=== PATIENT | male | born 2000 | race Two or more races ===

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

== ENCOUNTER 2019-08-22 19:07 | Emergency (ER) | payer OTHER ==
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
== END 2019-08-22 19:37 | disposition home or self-care (01) ==
LOC: ER 19:07
DX: T23.292D Burn of second degree of multiple sites of left wrist and hand, subsequent encounter (principal); X10.2XXD Contact with fats and cooking oils, subsequent encounter
CPT/HCPCS: 99282